=== PATIENT | female | born 1980 | race Caucasian/White ===

== ENCOUNTER 2018-12-15 11:39 | Outpatient (CLI) | payer MEDICAID ==
[2018-12-15] MEDS ORDERED: ceFAZolin 2 GM/DEXTROSE 100 ML IV ONE (12:44)
[2018-12-15] MEDS ORDERED: LR 1,000 ML IV ONE (12:44)
--- NOTE | 2018-12-15 13:03 | PDANEPAE ---
ANE Past Medical History - Pulmonary History Hx Sleep Apnea: No Sleep Apnea Screening Result - Last Documented: Negative ANE Review of Systems Review of Systems: ANE Patient History - Allergies Allergies/Adverse Reactions: Penicillins Allergy (Verified 12/14/18 18:01) - Home Medications Home medications: home medication list seen and reviewed - NPO status NPO Status: no food or drink >8 hours - Anes Hx Anes Hx: no prior problems - Smoking Hx Smoking Status: Never smoked ANE Labs/Vital Signs - Vital Signs Height: 160.02 cm Weight: 58.967 kg ANE Physical Exam - Airway Neck exam: FROM Mallampati Score: Class 1 Mouth exam: normal dental/mouth exam - Pulmonary Pulmonary: no respiratory distress, no rales or rhonchi, clear to auscultation - Cardiovascular Cardiovascular: regular rate and rhythym, no murmur, rub, or gallop - ASA Status ASA Status: I ANE Anesthesia Plan Anesthesia Plan: GA with mask
[2018-12-15] MEDS ORDERED: PROMETHAZINE HCL 25 MG/ML INJ IVP PRN (13:04)
[2018-12-15] MEDS ORDERED: ACETAMINOPHEN 500 MG TAB PO PRN ×2 (13:04→13:37)
[2018-12-15] MEDS ORDERED: MEPERIDINE 25 MG/0.5 ML AMP IVP PRN (13:04)
[2018-12-15] MEDS ORDERED: LR 500 ML IV PRN (13:04)
[2018-12-15] MEDS ORDERED: NALOXONE HCL 0.4 MG/ML INJ IVP PRN (13:04)
[2018-12-15] MEDS ORDERED: DEXAMETHASONE 4 MG/ML VIAL IVP PRN (13:04)
[2018-12-15] MEDS ORDERED: ONDANSETRON 4 MG/2 ML VIAL IVP PRN (13:04)
[2018-12-15] MEDS ORDERED: HYDROCODONE/APAP 5/325 TAB PO PRN (13:04)
[2018-12-15] MEDS ORDERED: fentaNYL 100 MCG/2 ML INJ IVP PRN (13:04)
[2018-12-15] MEDS ORDERED: DIAZEPAM 5 MG/ML 1 ML SYR IVP PRN (13:04)
[2018-12-15] MEDS ORDERED: fentaNYL 100 MCG/2 ML INJ ONE (13:24)
[2018-12-15] MEDS ORDERED: PROPOFOL 200 MG/20 ML VIAL ONE ×2 (13:24→14:19)
[2018-12-15] MEDS ORDERED: MIDAZOLAM 2 MG/2 ML VIAL ONE (13:24)
--- NOTE | 2018-12-15 14:37 | PDHPUP ---
History & Physical Update H&P update statement: This history and physical update is based on an assessment of the patient which was completed after admission or registration (within 24 hours), but prior to the surgery/procedure. H&P update: H&P reviewed & patient examined, no change in patient's condition since H&P completed
[2018-12-15] MEDS ORDERED: KETOROLAC 30 MG/1 ML SDV IVP ONE (14:40)
--- NOTE | 2018-12-15 14:40 | POSTANESTH ---
Post Anesthetic Evaluation Cardiovascular Status: Normal, Stable, Similar to Pre-Op Cond Respiratory Status: Normal, Stable, Similar to Pre-op Cond. Level of Consciousness/Mental Status: Can Participate in Eval, Mildly Sleepy, Arousable Pain Control: Adequate, Prn Tx Ordered Nausea/Vomiting Control: Adequate, Prn Tx Ordered Complications Possibly Related to Anesthesia: None Noted
--- NOTE | 2018-12-15 14:41 | POSTOPPROG ---
Post Op Note Date of Operation: 12/15/18 Surgeon: Dinora Rosa Anesthesiologist: Dr Luis Awan Anesthesia: GET(General Endotracheal) Pre-op Diagnosis: incomplete with an infection Post-op Diagnosis: same Procedure: ultrasound guided suction dilation and currettage Inf/Abcess present in the surg proc area at time of surgery?: Yes Depth: Organ Space EBL: 50-100 Total fluids administered: 350 Complications: suspected endometritis with incomplete Bowel Protocol: N/A Clean Closure Performed: N/A Specimen(s): products of conception
[2018-12-15] MEDS ORDERED: oxyCODONE IR 5 MG TAB PO PRN (14:45)
[2018-12-15] MEDS ORDERED: IBUPROFEN 600 MG TAB PO PRN (14:45)
[2018-12-15 15:14] VITALS: BP 111/80
== END 2018-12-15 16:29 | disposition home or self-care (01) ==
LOC: FOBOP 11:39 → EDSTATUS 12:00 → FOBOP 16:29
PROVIDERS: ATTEND Obstetrics & Gynecology
PROC: 10D17ZZ Extraction of Products of Conception, Retained, Via Natural or Artificial Opening (ICD-10-PCS; principal; 2018-12-15)
DX: O03.0 Genital tract and pelvic infection following incomplete spontaneous abortion (principal)
CPT/HCPCS: J0690; J1885; J2250; J2704; J3010